=== PATIENT | female | born 1970 | race African-American/Black ===

== ENCOUNTER 2017-07-21 20:30 | Outpatient (CLI) | payer OTHER | END 2017-07-21 20:31 | disposition home or self-care (01) | LOC: SLEEPLAB 20:30 | PROVIDERS: ATTEND Student in an Organized Health Care Education/Training Program | DX: G25.81 Restless legs syndrome (principal); G47.33 Obstructive sleep apnea (adult) (pediatric); G31.84 Mild cognitive impairment of uncertain or unknown etiology; F41.9 Anxiety disorder, unspecified | CPT/HCPCS: 95810 ==

== ENCOUNTER 2017-08-05 19:30 | Outpatient (CLI) | payer OTHER | END 2017-08-05 19:31 | disposition home or self-care (01) | LOC: SLEEPLAB 19:30 | PROVIDERS: ATTEND Student in an Organized Health Care Education/Training Program | DX: G25.81 Restless legs syndrome (principal); G47.00 Insomnia, unspecified; F41.9 Anxiety disorder, unspecified; R06.83 Snoring; G31.84 Mild cognitive impairment of uncertain or unknown etiology; G47.33 Obstructive sleep apnea (adult) (pediatric) | CPT/HCPCS: 95811 ==

== ENCOUNTER 2017-11-30 11:43 | Inpatient (IN) | payer OTHER ==
[2017-11-30 13:41] LABS: #Basophils 0.1 thou/uL (0.0-0.2); #Eosinphils 0.1 thou/uL (0.0-0.7); #Lymphocytes 2.7 thou/uL (1.20-3.40); #Monocytes 0.7 thou/uL (0.11-0.59); #Neutrophils 4.4 thou/uL (1.40-6.50); %Basophils 1.5 % (0.0-1.0); %Eosinophils 0.7 % (0.0-10.0); %Monocytes 8.7 % (0.0-10.0); %Neutrophils 55.3 % (42.0-75.0); Hemoglobin 14.8 g/dL (12.0-16.0); Mean Corpuscular HGB CONC 33.2 g/dL (32.0-36.0); Mean Corpuscular Hemoglobin 35.2 pg (27.0-31.0); Mean Platelet Volume 5.8 fL (7.4-10.4); Platelet Count 486 thou/uL (130-400); RBC Distribution Width 12.8 % (11.5-14.5); White Blood Cell (WBC) Count 7.9 thou/uL (4.8-10.8)
[2017-11-30 14:06] LABS: ALT (SGPT) 38 U/L (8-55); AST (SGOT) 145 U/L (5-34); Albumin 4.1 g/dL (3.5-5.0); Alkaline Phosphatase 148 U/L (40-150); Anion Gap 15 mmol/L (10-20); BUN (Urea Nitrogen) 4 mg/dL (7.0-18.7); Bilirubin, Total 0.8 mg/dL (0.2-1.2); Calc. Creatinine Clearance 0 mL/min (70-130); Carbon Dioxide 31 mmol/L (22-29); Chloride 101 mmol/L (98-107); Estimated GFR-MDRD 88; Globulin 3.8 g/dL (2.4-3.5); Glucose 105 mg/dL (70-105); Potassium 4.5 mmol/L (3.5-5.1); Protein, Total 7.9 g/dL (6.0-8.3); Sodium 142 mmol/L (136-145)
[2017-11-30 20:56] VITALS: BMI 27.8
[2017-11-30] MEDS: Acetaminophen 325 MG TAB PO SCH (21:18)
[2017-11-30] MEDS: diphenhydrAMINE 50 MG CAP PO SCH (21:18)
[2017-11-30] MEDS ORDERED: Sodium Chloride 0.9% 500 ML IVPB SCH (21:30)
[2017-11-30] MEDS ORDERED: Gabapentin 300 MG CAP PO SCH (21:45)
[2017-11-30] MEDS: Sodium Chloride 0.9% 500 ML IV SCH (21:51)
[2017-11-30] MEDS: OCTAGAM 10% 20 GM in Admixture Fee 1 EACH IVPB SCH (22:33)
--- NOTE | 2017-11-30 23:32 | CON ---
DATE OF CONSULTATION: 11/30/2017 CHIEF COMPLAINT: Weakness. HISTORY OF PRESENT ILLNESS: Patient and gave medical history. 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 She has had some difficulty with strength in her hands and fingers. Overall, she had recovered and made a 95% recovery until last August and during , she had a while illness and following that since September, she has had weakness and she is having to use a walker; prior to that, she was independent and she had another viral illness in September and October. She stated she thought she had the flu, but she did not visit her doctor. She had sickness, but was throwing up due to the illness and she has seen Dr. Ocampo in October and today, she called her office and was told to come to the ER for steroids per Dr. Ocampo's nurse and the ER resident called Dr. Ocampo and was told she would like the patient to be evaluated by me and have IVIG treatment and patient has been continuing to take Neurontin as of now. PREVIOUS MEDICAL HISTORY: Prior to this illness, she was pretty healthy and did not have any other major health issues. PREVIOUS SURGICAL HISTORY: None. SOCIAL HISTORY: Lives with her , is retired, nonsmoker, prior alcohol. FAMILY HISTORY: Negative for any neuropathy or a similar illness. HOME MEDICATIONS: Include gabapentin, furosemide, levothyroxine, and vitamin B12. CURRENT LABORATORY WORKUP: Shows white count 7.9, hemoglobin 14.8, hematocrit 44.5, platelets 486. Chemistries: Sodium 142, potassium 4.5, chloride 101, bicarbonate 31, BUN 4, creatinine 0.83, ALT is 38, AST is 145, alkaline phosphatase 148. REVIEW OF SYSTEMS: Pulmonary: Normal. Cardiac: Normal. Gastrointestinal: Normal. Genitourinary: Normal. Neurologic: Positive for weakness. Hematologic: Normal. Endocrine: Positive for thyroid dysfunction. Dermatologic: Normal. PHYSICAL EXAMINATION: VITAL SIGNS: Her blood pressure was 143/110, pulse 117, respiratory rate 20, temperature 98.0, and on the floor, her blood pressure was more in the 120 systolic and 85 diastolic, and pulse was 120. GENERAL: She is a well-built very pleasant lady. CHEST: Clear vesicular breathing. CARDIOVASCULAR: S1, S2 heard, no murmurs. Carotids are clear. ABDOMEN: Soft, nontender. NEUROLOGICAL: Higher intellectual functions, normal orientation to time, place , person appropriate conversation. Cranial nerves, she has slightly decreased hearing to finger rub and during conversation. Normal fundus exam. Normal extraocular movements. No facial asymmetry, normal sensation of face bilaterally. Motor examination: Bulk normal, tone normal, strength 5/5 in proximal upper extremities, but distally and wrist extensors and flexors, her strength was 4/5 on the right, 3/5 for wrist and finger extensors on the left. Lower extremity strength was 5/5 proximally, there was some weakness 4+/5 and also ankle dorsiflexion was somewhat weak at 4+/5. Deep tendon reflexes were absent throughout. Sensory: Normal touch, pinprick, proprioception, vibration , but there was some asymmetry in vibration with loss in the right upper extremity and decreased in the distal left lower extremity. Cerebellar: Normal [id number] and [id number]-[id number] difficult to perform. Gait, she had to hold onto the bed to get up from the bed and once she stood up, she seemed very unsteady and unstable. IMPRESSION: The patient is a 47-year-old lady with chronic inflammatory demyelinating polyneuropathy, has had a prior episode of Guillain-[place] about 2- 1/2 years ago with 95% recovery and recurrent symptoms with worsening of her weakness since September and is having to use the walker. Prior to September, she was shopping, she was able to drive and functioned quite well. 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 RECOMMENDATIONS: I would like to start this patient on IVIG for 3 days and so we can treat this lady and help her with her symptoms and I will follow up on a daily basis. LISBETH
[2017-12-01] MEDS: Sodium Chloride 0.9% 500 ML IV SCH ×2 (00:50→20:30)
[2017-12-01] MEDS ORDERED: Lorazepam 2 MG/ML VIAL SLOW IVP PRN (08:10)
[2017-12-01] MEDS: Folic Acid 1 MG TAB PO SCH (09:10)
[2017-12-01] MEDS: Diazepam 5 MG TAB PO SCH ×3 (09:10→20:20)
[2017-12-01] MEDS: Milk Of Magnesia 30 ML UDCUP PO SCH (09:10)
[2017-12-01] MEDS: Gabapentin 400 MG CAP PO SCH ×2 (09:11→20:25)
[2017-12-01] MEDS: Multivit, Therapeutic 1 TAB PO SCH (09:11)
--- NOTE | 2017-12-01 09:13 | HP ---
DATE OF OBSERVATION: 11/30/2017 CHIEF COMPLAINT: Exacerbation of neuropathy. HISTORY OF PRESENT ILLNESS: The patient is a 47-year-old female who was hospitalized 2-1/2 years ago for chronic inflammatory demyelinating polyneuropathy. It has the appearance of Guillain-[place], and she states that she had had an episode of Guillain-[place]udson prior to this. She has had slow recovery u p to 95% of her function since that time, but since September, she has been noticing increasing numbne ss and tingling in both her hands and weakness in the proximal muscles of her legs as well as in her scowman strength. She came to see Dr. Acevedo 2 days prior to admission. Where in the office, he coordin ated referral to a neurologist, Dr. Ocampo, as the patient tried to connect with this referral, she was instructed to go to the emergency room, and from here, it was decided that she will be put in for IV IG therapy for 3 days. PAST MEDICAL HISTORY: She has been pretty healthy individual except for this chronic inflammatory de myelinating polyneuropathy. She has had hypothyroidism. 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 She has a long history of heavy regular alcohol intake and was noted to have a fatty liver in the past and gal lstones. She has also had a history of stomach ulcers and arthritis. PAST SURGICAL HISTORY: Includes the aforementioned EGD in 2011 at which time an esophageal web was d iagnosed. CURRENT MEDICATIONS: At the time of admission include Synthroid 50 mcg a day, gabapentin 600 mg b.i. d., Lasix 20 mg q.a.m. ALLERGIES: She has no known drug allergies. SOCIAL HISTORY: She is . Denies smoking, but admits to regular heavy alcohol use. This was confirmed by her spouse. FAMILY HISTORY: Father is . Mother is alive and lives with them. Siblings are alive. REVIEW OF SYSTEMS: At the time of admission, GENERAL: Negative. In that note other than weakness, she has no fever. HEENT: Negative for discharge or pain. CHEST: Denies coughing and respiratory distress or wheezing. CARDIOVASCULAR: Denies palpitations, although she has been tachycardic for several days now. EXTREMITIES: Denies nausea, vomiting, or diarrhea. MUSCULOSKELETAL: Admits to weakness in her scowman and going from sitting to standing. SKIN: No new rashes or lesions. NEUROLOGIC: She has changes in her gait, changes in her sensation in both hands. ENDOCRINE: Has no swelling or edema. PSYCHIATRIC: Denies any depression or trouble with mentation. PHYSICAL EXAMINATION: At the time of admission, VITAL SIGNS: Blood pressure 151/108, pulse 125, respirations 20, temperature 97.9. Pain is 5/10, bu t currently she states she is in no pain at all and is 0, 5/10 was on admission to the emergency room . GENERAL: Well-developed, well-nourished female, alert, oriented, and cooperative. HEENT: Normocephalic and atraumatic. Pupils equal, round, and reactive to light. Extraocular muscl es are intact. TMs, nares, pharynx are clear. NECK: Supple, trachea midline, no mass. CHEST: Clear to auscultation. BREASTS: Deferred. HEART: Regular rate and rhythm, tachycardic. ABDOMEN: Soft, nontender with mild appreciable hepatomegaly, but no other mass or lesions. GENITOURINARY: Deferred. EXTREMITIES: Without clubbing, cyanosis, or edema. There is mild muscular atrophy and wasting in th e calves bilaterally. SKIN: Without acute rashes or lesions. NEUROLOGIC: She has gait that requires a walker and is unsteady. Sensory exam is grossly intact. M ental status at this time is clear. Denies hallucinations. Deep tendon reflexes in both knees are a bsent. LABORATORY DATA: Lab work thus far sodium 142, potassium 4.5, chloride 101, CO2 is 31, BUN 4, creati nine 0.83, glucose 105, calcium 10, AST 145, ALT 38, albumin to globulin ratio was low at 1.1. WBC 7 .9, hemoglobin is 14.8, hematocrit is 44.5, MCV is noted to be larger 106 with an MCH elevated at 35. 2, platelets high at 486. UA is pending. TSH is pending. Magnesium levels currently pending. ASSESSMENT: 1. Chronic inflammatory demyelinating polyneuropathy exacerbation. 2. Alcohol withdrawal. 3. Alcoholism. 4. Hypothyroidism. PLAN: Plan is to prevent DTs and begin the IVIG infusion over 8 hours for 3 days. Serial reevaluati on will be performed.
[2017-12-01 09:20] LABS: Magnesium 1.9 mg/dL (1.6-2.6)
[2017-12-01] MEDS: Thiamine HCl 200 MG/2 ML VIAL IM SCH (09:33)
[2017-12-01 09:38] LABS: Thyroid Stimulating Hormone 3.7909 uIU/mL (0.35-4.94); Vitamin D, 25 Hydroxy 23.7 ng/ml (> 30.0)
--- NOTE | 2017-12-01 13:58 | PRG ---
DATE OF SERVICE: 12/01/2017 CHIEF COMPLAINT: Muscle weakness following CIDP exacerbation. INTERVAL HISTORY: The patient has received her IVIG last night and she feels stable. She does not p articularly report any significant change. LABORATORY DATA: Today's labs are not available yet. PHYSICAL EXAMINATION: VITAL SIGNS: Blood pressure 140/91, pulse is 110, and temperature 97.9. NEUROLOGIC: Alert, awake, oriented. Cranial nerves: No facial asymmetry, normal extraocular moveme nts, tongue midline. Motor examination: Bulk normal, tone normal. Strength is 5-/5 in both upper e xtremities. There is some improvement in the distal upper extremities, particularly finger extensors , it is now at 4/5 in the lower extremities, her strength is 4+/5 proximal muscles, distally she is a t 5/5. Gait not tested. IMPRESSION: Patient with chronic inflammatory demyelinating polyneuropathy exacerbation. At this ti me, she remains stable and she has completed her first IVIG infusion therapy. PLAN: Continue present management and I will follow up again with you tomorrow.
[2017-12-01 14:11] LABS: #Eosinphils 0.1 thou/uL (0.0-0.7); #Lymphocytes 1.9 thou/uL (1.20-3.40); #Monocytes 0.7 thou/uL (0.11-0.59); %Basophils 0.7 % (0.0-1.0); %Eosinophils 1.2 % (0.0-10.0); %Lymphocytes 28.6 % (21.0-51.0); %Neutrophils 59.5 % (42.0-75.0); Hemoglobin 12.8 g/dL (12.0-16.0); Mean Corpuscular HGB CONC 33.1 g/dL (32.0-36.0); Mean Corpuscular Hemoglobin 35.2 pg (27.0-31.0); Mean Platelet Volume 5.6 fL (7.4-10.4); Platelet Count 399 thou/uL (130-400); RBC Distribution Width 12.6 % (11.5-14.5); Red Blood Cell (RBC) Count 3.65 mill/uL (4.20-5.40); White Blood Cell (WBC) Count 6.7 thou/uL (4.8-10.8)
[2017-12-01 14:15] LABS: INR-International Normal Ratio 1.1; PTT 32.1 SEC (22.9-36.1); Prothrombin Time 13.8 SEC (12.0-14.7)
[2017-12-01 14:31] LABS: ALT (SGPT) 21 U/L (8-55); AST (SGOT) 47 U/L (5-34); Albumin 3.3 g/dL (3.5-5.0); Alkaline Phosphatase 114 U/L (40-150); Anion Gap 11 mmol/L (10-20); BUN (Urea Nitrogen) 6 mg/dL (7.0-18.7); Bilirubin, Total 0.8 mg/dL (0.2-1.2); Calc. Creatinine Clearance 88 mL/min (70-130); Calcium 9.1 mg/dL (7.8-10.44); Carbon Dioxide 28 mmol/L (22-29); Chloride 106 mmol/L (98-107); Estimated GFR-MDRD Greater than 90; Globulin 3.6 g/dL (2.4-3.5); Glucose 93 mg/dL (70-105); Potassium 3.8 mmol/L (3.5-5.1); Protein, Total 6.9 g/dL (6.0-8.3); Sodium 141 mmol/L (136-145)
[2017-12-01] MEDS: diphenhydrAMINE 50 MG CAP PO SCH (20:19)
[2017-12-01] MEDS: Acetaminophen 325 MG TAB PO SCH (20:20)
[2017-12-01] MEDS: Gabapentin 300 MG CAP PO SCH (20:24)
[2017-12-01] MEDS: OCTAGAM 10% 20 GM in Admixture Fee 1 EACH IVPB SCH (22:03)
[2017-12-02] MEDS: Levothyroxine Sodium 50 MCG TAB PO SCH (06:01)
[2017-12-02] MEDS: Sodium Chloride 0.9% 500 ML IV SCH ×2 (06:02→20:31)
[2017-12-02] MEDS: Multivit, Therapeutic 1 TAB PO SCH (10:05)
[2017-12-02] MEDS: Thiamine HCl 200 MG/2 ML VIAL IM SCH (10:05)
[2017-12-02] MEDS: Folic Acid 1 MG TAB PO SCH (10:05)
[2017-12-02] MEDS: Gabapentin 400 MG CAP PO SCH (10:05)
[2017-12-02] MEDS: Diazepam 5 MG TAB PO SCH ×3 (10:05→20:33)
[2017-12-02] MEDS: Milk Of Magnesia 30 ML UDCUP PO SCH (10:09)
--- NOTE | 2017-12-02 13:41 | PRG ---
DATE OF SERVICE: 12/02/2017 INTERVAL HISTORY: The patient reports she has been walking. She feels slightly stronger compared to yesterday and she is also being investigated for other risk factors. Patient is going to be started on thiamine by Dr. Acevedo. The patient tells me she has been drinking 3-4 glasses of wine per day an d is not aware of neurological consequences of alcohol. LABORATORY RESULTS: White count 6.7, hemoglobin 12.8, hematocrit 38.8, platelets 399. Chemistry: S odium 141, potassium 3.8, chloride 106, bicarbonate 28, BUN 6, creatinine 0.79, AST 47, ALT 21, alkal ine phosphatase 114. TSH 3.7. Vitamin D2 23.7. Vitamin B12 1068, folate 17. PHYSICAL EXAMINATION: VITAL SIGNS: Her blood pressure is 135/88, temperature 97.7, respiratory rate 19, O2 sats 100%. NEUROLOGIC: Higher intellectual functions normal. Cranial nerves II-XII normal with normal extraocu lar movements. Normal hearing and tongue midline. No facial asymmetry. Motor exam: Bulk normal, t one normal, strength 5/5 in upper extremities and distal upper extremities with finger extensors was about 4+/5. Lower extremities, 4+/5 strength in proximal and distal and gait, she was able to stand and had good balance today and walks with mildest minimal assistance; however, she has eversion of omero th feet when she walks and I am not sure whether this is a kind of gait she had since childhood. IMPRESSION: Patient with chronic inflammatory demyelinating polyneuropathy presents to the hospital with increased weakness. She is receiving 3 days of IVIG to improve her neurological symptoms. At t his time, she is also reporting to me that she drinks alcohol on a regular basis. I educated patient about alcohol and side effects of alcohol on the nervous system including cerebellar dysfunction and causing neuropathy as well. The patient will work with Dr. Acevedo and her primary care doctor once s he is discharged to on reducing and stopping alcohol and she will also discuss this with Dr. Ocampo. RECOMMENDATIONS: 1. Complete her IVIG tonight. 2. If okay with Dr. Ocampo, please check with Dr. Ocampo and discharge patient tomorrow morning. Call m e if you have any further questions.
[2017-12-02] MEDS: Gabapentin 300 MG CAP PO SCH (20:34)
[2017-12-02] MEDS: Acetaminophen 325 MG TAB PO SCH (20:34)
[2017-12-02] MEDS: diphenhydrAMINE 50 MG CAP PO SCH (20:35)
[2017-12-02] MEDS: OCTAGAM 10% 20 GM in Admixture Fee 1 EACH IVPB SCH (22:37)
[2017-12-03] MEDS: Gabapentin 400 MG CAP PO SCH ×3 (02:27→22:17)
[2017-12-03] MEDS: Levothyroxine Sodium 50 MCG TAB PO SCH (05:28)
[2017-12-03] MEDS: Sodium Chloride 0.9% 500 ML IV SCH (05:32)
[2017-12-03] MEDS: Folic Acid 1 MG TAB PO SCH (08:15)
[2017-12-03] MEDS: Milk Of Magnesia 30 ML UDCUP PO SCH (08:15)
[2017-12-03] MEDS: Multivit, Therapeutic 1 TAB PO SCH (08:15)
[2017-12-03] MEDS: Diazepam 5 MG TAB PO SCH ×3 (10:25→22:17)
[2017-12-03] MEDS: Thiamine HCl 200 MG/2 ML VIAL IM SCH (10:26)
[2017-12-03] MEDS ORDERED: Diazepam 5 MG TAB PO SCH (16:00)
[2017-12-04] MEDS: Levothyroxine Sodium 50 MCG TAB PO SCH (06:04)
--- NOTE | 2017-12-04 08:47 | PRG ---
DATE OF SERVICE: 12/04/2017 This is ROLAN Velez-Andre dictating for Riky Acevedo M.D. SUBJECTIVE: The patient had a good night. She is able to get up and use her walker. The patient re ally does not want to go to rehabilitation; however, Dr. Ocampo did mention that he thought she needed inpatient rehabilitation. OBJECTIVE: GENERAL: Upon evaluation, she is awake, alert, and oriented. VITAL SIGNS: Her blood pressure is 120/80, pulse 100, respirations 18, she is afebrile. NECK: Supple with no increased JVP or carotid bruit. Carotid had good upstroke with no thyromegaly. COR: Regular rate and rhythm. CHEST: Symmetrical. Clear to auscultation and percussion. ABDOMEN: Soft, nontender with normoactive bowel sounds. No bruit or organomegaly. EXTREMITIES: No edema or cyanosis. Palpable pedal pulses. SKIN: There is no evidence of ulcer, lesion or rash. NEUROLOGIC: She is awake, alert, and oriented to person, place, and time. ASSESSMENT: 1. Chronic inflammatory demyelinating polyneuropathy. 2. Alcohol withdrawal. 3. Weakness. PLAN: I do not feel like the patient needs inpatient rehabilitation; however, the patient will talk with Dr. Ocampo to see again his recommendations. If all is okay, we will look at going home today or rehabilitation.
[2017-12-04] MEDS: Gabapentin 400 MG CAP PO SCH ×2 (09:25→23:00)
[2017-12-04] MEDS: Multivit, Therapeutic 1 TAB PO SCH (09:25)
[2017-12-04] MEDS: Diazepam 5 MG TAB PO SCH ×3 (09:25→23:00)
[2017-12-04] MEDS: Milk Of Magnesia 30 ML UDCUP PO SCH (09:25)
[2017-12-04] MEDS: Folic Acid 1 MG TAB PO SCH (09:25)
--- NOTE | 2017-12-04 21:56 | PRG ---
DATE OF SERVICE: 12/03/2017 SUBJECTIVE: Ms. Wasserman is a pleasant 47-year-old female with prior history of GBS presented with an acute onset of worsening bilateral upper and lower extremity weakness and numbness. She has undergon e 3 days of IVIG therapy. She reports that she has noted improvement in her strength of both upper a nd lower extremities; however, she continues to be somewhat weak in her lower extremities and has gael e difficulty with balance. She also continues to have numbness and tingling in her hands and feet. She denies any noticeable side effects or complications from IVIG. PHYSICAL EXAMINATION: VITAL SIGNS: Blood pressure of 141/92, pulse of 105, temperature of 98.1, respirations of 18, O2 sat s of 100% on room air. GENERAL: Well-developed, well-nourished female, in no apparent distress. RESPIRATORY: Clear to auscultation bilaterally. CARDIOVASCULAR: Regular rate and rhythm. NEUROLOGIC: Mental status: The patient is awake, alert, and oriented x3. Speech and language: Flu ent speech. Cranial nerves: Pupils are 3 mm and reactive. Visual rpather are intact. Extraocular m uscles are intact. No nystagmus is noted. Face is symmetric. Motor exam showed normal tone and bul k with 5/5 strength in both upper extremities proximally and 4+/5 strength distally, 4/5 strength in both lower extremities. Sensory diminished sensation in both upper and lower extremities in distal t o proximal gradient. Deep tendon reflexes, absent reflexes in both lower extremities and 1+ reflex i n both upper extremities. IMPRESSION: Chronic inflammatory demyelinating polyneuropathy. Ms. Wasserman is a pleasant 47-year-old female, who presented with the bilateral upper and lower extremity weakness, has undergone for 3 day s of IVIG therapy. She has noted improvement in her strength; however, she is not completely back to her baseline. At this time, I would recommend that she would benefit from inpatient rehabilitation. When she completes the inpatient rehabilitation, she will follow up with us in our clinic as an out patient. We have informed her that we may decide to perform EMG nerve conduction study as an outpati ent and may discuss the future therapy.
[2017-12-05] MEDS: Levothyroxine Sodium 50 MCG TAB PO SCH (05:52)
[2017-12-05] MEDS: Multivit, Therapeutic 1 TAB PO SCH (09:24)
[2017-12-05] MEDS: Folic Acid 1 MG TAB PO SCH (09:24)
[2017-12-05] MEDS: Gabapentin 400 MG CAP PO SCH (09:24)
[2017-12-05] MEDS: Milk Of Magnesia 30 ML UDCUP PO SCH (09:24)
[2017-12-05] MEDS: Diazepam 5 MG TAB PO SCH ×2 (09:24→15:28)
[2017-12-05 11:29] VITALS: TEMP 97.2
[2017-12-05 15:43] VITALS: BP 140/87
--- NOTE | 2017-12-08 18:04 | EKG ---
Test Reason : Blood Pressure : / mmHG Vent. Rate : 114 BPM Atrial Rate : 114 BPM P-R Int : 144 ms QRS Dur : 066 ms QT Int : 336 ms P-R-T Axes : 055 -08 056 degrees QTc Int : 463 ms Sinus tachycardia Inferior infarct , age undetermined Abnormal ECG Confirmed by EDWARD VASQUEZ, MURRAY ([id number]), marketing editor ANABELL ADAME ([id number] on 12/08/2017 6:03:17 PM Referred By: Confirmed By:MURRAY LEON MD
== END 2017-12-05 15:29 | disposition home or self-care (01) | DRG 74 ==
LOC: ERS 11:43 → OBSVTOIN 17:17 → 2SW 17:17 → 2NO 12-01 10:19
PROVIDERS: ADMIT Specialist; ATTEND Specialist
DX: G61.81 Chronic inflammatory demyelinating polyneuritis (principal); G65.0 Sequelae of Guillain-Barre syndrome; F10.239 Alcohol dependence with withdrawal, unspecified; E03.9 Hypothyroidism, unspecified; E55.9 Vitamin D deficiency, unspecified
CPT/HCPCS: 36415; 80053; 82306; 82607; 82746; 83540; 83735; 84443; 85025; 85610; 85730; 93005; A4216; G8978-GP-CK; G8979-GP-CJ; J1568; J3411; J7050

== ENCOUNTER 2018-04-01 09:36 | Outpatient (CLI) | payer OTHER | END 2018-04-01 09:37 | disposition home or self-care (01) | LOC: EKG 09:36 | PROVIDERS: ATTEND Psychiatry & Neurology Neurology | DX: G61.81 Chronic inflammatory demyelinating polyneuritis (principal); R00.2 Palpitations | CPT/HCPCS: 93005; 93010 ==

== ENCOUNTER 2021-08-01 12:00 | Outpatient (CLI) | payer MEDICARE, OTHER | END 2021-08-01 12:01 | disposition home or self-care (01) | LOC: BICRAD 12:00 | PROVIDERS: ATTEND Specialist | DX: R06.00 Dyspnea, unspecified (principal) | CPT/HCPCS: 71046 ==